=== PATIENT | female | born 1945 | race Caucasian/White ===

== ENCOUNTER 2016-10-25 14:13 | Emergency (ER) | payer BC ==
[~2016-10-25] VITALS: Ht 170.2 cm; Wt 68.0 kg
[2016-10-25 16:38] VITALS: BP 158/59
== END 2016-10-25 17:50 | disposition home or self-care (01) ==
LOC: ER 14:22
DX: S83.92XA Sprain of unspecified site of left knee, initial encounter (principal); W01.0XXA Fall on same level from slipping, tripping and stumbling without subsequent striking against object, initial encounter; Y93.89 Activity, other specified; Y99.8 Other external cause status; Y92.59 Other trade areas as the place of occurrence of the external cause
CPT/HCPCS: 73560; 73562